=== PATIENT | female | born 1980 | race Caucasian/White ===

== ENCOUNTER 2018-01-12 15:29 | Emergency (ER) | payer BC ==
[~2018-01-12] VITALS: Ht 152.4 cm; Wt 83.9 kg
[2018-01-12 15:45] VITALS: BP 129/74; Ht 152.4 cm; Wt 83.9 kg
== END 2018-01-12 16:20 | disposition left against medical advice (07) ==
LOC: ED 15:29
DX: Z53.21 Procedure and treatment not carried out due to patient leaving prior to being seen by health care provider (principal)

== ENCOUNTER 2018-02-21 04:19 | Emergency (ER) | payer BC ==
[~2018-02-21] VITALS: Ht 152.4 cm; Wt 83.5 kg
[2018-02-21 04:25] VITALS: Ht 152.4 cm; Wt 83.5 kg
[2018-02-21 04:57] LABS: BASOPHIL % 0.8 % (0-2); PLATELET COUNT 271 x10^3mcL (130-400); RED CELL DISTRIBUTION WIDTH 11.9 % (11.5-14.5)
[2018-02-21 05:05] LABS: CALCIUM 8.7 mg/dL (8.5-10.1); CARBON DIOXIDE 20.9 mmol/L (21-32); CHLORIDE SERUM 104 mmol/L (98-107); CREATININE SERUM 0.6 mg/dL (0.6-1.0); GFR1 > 60 mL/min; GLUCOSE SERUM 106 mg/dL (74-106); POTASSIUM SERUM 3.2 mmol/L (3.5-5.1); SODIUM SERUM 137 mmol/L (136-145)
[2018-02-21 05:18] LABS: ALBUMIN 3.8 g/dL (3.4-5.0); ALKALINE PHOSPHATASE 58 U/L (46-116); ALT/SGPT 23 U/L (14-59); AST/SGOT 14 U/L (15-37); BILIRUBIN TOTAL 0.4 mg/dL (0.20-1.00); TOTAL PROTEIN, SERUM 7.6 g/dL (6.4-8.2)
[2018-02-21 06:17] VITALS: BP 106/65
== END 2018-02-21 06:17 | disposition home or self-care (01) ==
LOC: ED 04:19
PROVIDERS: Emergency Medicine
DX: R00.0 Tachycardia, unspecified (principal); F41.9 Anxiety disorder, unspecified; E87.6 Hypokalemia; R07.89 Other chest pain; R06.02 Shortness of breath
CPT/HCPCS: 85378; J2060; J7030; Q0092